=== PATIENT | male | born 1955 | race Caucasian/White ===

== ENCOUNTER 2018-05-03 13:31 | Inpatient (IN) | payer OTHER ==
--- NOTE | 2018-05-03 13:40 | EDPHY ---
H & P Stated Complaint: increased SOB, had to increase home o2 to 4L Time Seen by Provider: 05/03/18 13:40 HPI/ROS: CHIEF COMPLAINT: Increasing dyspnea, abdominal pain and distension HISTORY OF PRESENT ILLNESS: Patient reportedly has a history of stage IV renal cancer with lung metastases. Presents the emergency department today with increasing dyspnea, abdominal distention and pain. The patient is chronically anticoagulated with Eliquis which she has been compliant with. The patient denies any asymmetric calf pain or swelling. The patient denies fever, cough or congestion. The patient does report he has been experiencing intermittent constipation and diarrhea. The patient denies any history of fall or trauma. The patient does state that his shortness of breath moderate to severe in nature and worsened with ambulation. The patient was hospitalized approximately a month ago and or [facility]. He was noted to have chronic renal failure at that point time with a creatinine of 5 The patient reports his baseline creatinine is in the low 4 range currently. The patient is scheduled to undergo a CT scan of the chest abdomen pelvis for staging of his disease in the coming weeks. Patient typically is followed at [facility]. REVIEW OF SYSTEMS: A comprehensive 10 point review of systems is otherwise negative aside from elements mentioned in the history of present illness. Source: Patient Exam Limitations: No limitations - Personal History Current Tetanus/Diphtheria Vaccine: Unsure Current Tetanus Diphtheria and Acellular Pertussis (TDAP): Unsure - Medical/Surgical History Hx Asthma: No Hx Chronic Respiratory Disease: Yes Hx Diabetes: No Hx Renal Disease: Yes Hx Cirrhosis: No Hx Alcoholism: No Hx HIV/AIDS: No Hx Splenectomy or Spleen Trauma: No Other PMH: Stage 4 kidney cancer w/lung involvement, CHF, restrictive lung disease - Social History Smoking Status: Never smoked - Physical Exam Exam: General Appearance: Alert, no distress Eyes: Pupils equal and round no pallor or injection ENT, Mouth: Mucous membranes moist Respiratory: Fine expiratory wheezing noted Cardiovascular: Regular rate and rhythm Gastrointestinal: Protuberant, normal bowel sounds, minimal generalized tenderness, no peritoneal signs Neurological: 5/5 strength noted all 4 extremities Skin: Warm and dry, no rashes Musculoskeletal: Neck is supple nontender Extremities: symmetrical, full range of motion Constitutional: Initial Vital Signs Temperature (C) 36.7 C 05/03/18 13:34 Heart Rate 69 05/03/18 13:34 Respiratory Rate 20 05/03/18 13:34 Blood Pressure 158/92 H 05/03/18 13:34 O2 Sat (%) 93 05/03/18 13:34 O2 Delivery Mode Nasal Cannula O2 (L/minute) 4 Allergies/Adverse Reactions: Penicillins Allergy (Mild, Verified 05/03/18 13:33) Rash Home Medications: Medication Instructions Recorded ALLOPURINOL 300 mg 12/28/09 FENOFIBRATE 160 mg 12/28/09 FISH OIL CONC 1,000 MG SOFTGEL 1,000 mg 12/28/09 LISINOPRIL 5 mg 12/28/09 Medical Decision Making - Diagnostics Imaging Results: Imaging Impressions Chest X-Ray 05/03/18 13:54 Impression: Large left pleural effusion. Atelectasis or pneumonia in the left mid and lower hemithorax. Stable cardiomegaly. ED Course/Re-evaluation: Patient presents to the ED with increasing abdominal distension and dyspnea. The patient has a history of chronic renal failure. He has a history of metastatic renal cancer. The patient is under the impression that he only had small nodular metastases in the lung. The patient is currently anticoagulated and I doubt pulmonary embolism is a presentation of his symptoms today. I am unable to access the [place] system to review his hospitalization [facility]. Chest x-ray does demonstrate a large pleural effusion which is certainly symptomatic. The patient is currently anticoagulated with Eliquis. He was placed on this a month ago for bilateral DVTs. Patient will require admission to hospital for consideration of a thoracentesis. Consultation was made with the hospitalist service. The patient will be admitted by Dr. Billingsley. Pending at this time is a CT scan of the chest abdomen pelvis without contrast for further characterization of his underlying metastatic renal disease. Differential Diagnosis: Differential diagnosis considered includes pleural effusion, asthma, bronchitis , pneumonia, hemothorax, pneumothorax - Data Points Laboratory Results: Laboratory Results 05/03/18 14:02 05/03/18 05/03/18 05/03/18 14:11 14:02 14:02 WBC 6.64 10^3/uL 10^3/uL (3.80-9.50) RBC 3.79 10^6/uL L 10^6/uL (4.40-6.38) Hgb 10.8 g/dL L g/dL (13.7-17.5) POC Hgb 11.2 gm/dL L gm/dL (13.7-17.5) Hct 33.4 % L % (40.0-51.0) POC Hct 33 % L % (40-51) MCV 88.1 fL fL (81.5-99.8) MCH 28.5 pg pg (27.9-34.1) MCHC 32.3 g/dL L g/dL (32.4-36.7) RDW 13.4 % % (11.5-15.2) Plt Count 157 10^3/uL 10^3/uL (150-400) MPV 9.6 fL fL (8.7-11.7) Neut % (Auto) Pending Lymph % (Auto) Pending [place] % (Auto) Pending Eos % (Auto) Pending Baso % (Auto) Pending Nucleat RBC Rel Count Pending Absolute Neuts (auto) Pending Absolute Lymphs (auto) Pending Absolute Monos (auto) Pending Absolute Eos (auto) Pending Absolute Basos (auto) Pending Absolute Nucleated RBC Pending Immature Gran % Pending Immature Gran # Pending Platelet Estimate Pending POC Sodium 140 mEq/L mEq/L (135-145) Sodium Pending POC Potassium 4.5 mEq/L mEq/L (3.3-5.0) Potassium Pending POC Chloride 108 mEq/L mEq/L (97-110) Chloride Pending Carbon Dioxide Pending Anion Gap Pending POC BUN 62 mg/dL H mg/dL (7-23) BUN Pending Creatinine Pending POC Creatinine 4.2 mg/dL H mg/dL (0.7-1.3) Estimated GFR Pending Glucose Pending POC Glucose 92 mg/dL mg/dL (70-100) Calcium Pending Total Bilirubin Pending Conjugated Bilirubin Pending Unconjugated Bilirubin Pending AST Pending ALT Pending Alkaline Phosphatase Pending Total Protein Pending Albumin Pending Lipase Pending Point of Care Test Results: Chemistry 05/03/18 14:11 POC Sodium 140 mEq/L mEq/L (135-145) POC Potassium 4.5 mEq/L mEq/L (3.3-5.0) POC Chloride 108 mEq/L mEq/L (97-110) POC BUN 62 mg/dL H mg/dL (7-23) POC Creatinine 4.2 mg/dL H mg/dL (0.7-1.3) POC Glucose 92 mg/dL mg/dL (70-100) ISTAT H&H 05/03/18 14:11 POC Hgb 11.2 gm/dL L gm/dL (13.7-17.5) POC Hct 33 % L % (40-51) Departure - Departure Disposition: [facility] Inpatient Acute Clinical Impression: Pleural effusion, Renal malignant neoplasm Condition: Fair Referrals: Unknown,Unknown [Primary Care Provider] - As per Instructions
[2018-05-03 14:21] LABS: PLATELET COUNT 157 10^3/uL (150-400)
[2018-05-03 15:20] LABS: INR 1.2 (0.83-1.16); PROTIME(PATIENT) 15.4 SEC (12.0-15.0)
[2018-05-03] MEDS ORDERED: ALBUTEROL 60 PUFFS/8 GM MDI IH PRN (15:27)
[2018-05-03] MEDS ORDERED: oxyCODONE IR 5 MG TAB PO PRN (15:27)
[2018-05-03] MEDS ORDERED: ONDANSETRON DISINTEGRATING 4 MG TAB PO PRN (15:27)
[2018-05-03] MEDS ORDERED: ACETAMINOPHEN 325 MG TAB PO PRN (15:27)
[2018-05-03] MEDS ORDERED: ONDANSETRON 4 MG/2 ML VIAL IVP PRN (15:27)
[2018-05-03] MEDS ORDERED: HYDROCODONE/APAP 5/325 TAB PO PRN (15:29)
--- NOTE | 2018-05-03 15:32 | PDGENHP ---
History and Physical - Chief Complaint shortness of breath - History of Present Illness 62yo M with metastatic RCC, CKD stage 5 with nephrotic syndrome, DVT on OAC here with several weeks of worsening shortness of breath. Was previously able to walk short distances (10ft) before becoming short of breath and now gets dyspneic with hardly any movement at all. + orthopnea. + abdominal distention. No leg swelling, chest pain, pleuritic pain. No fevers, chills, cough. His home health nurse instructed him to go up on his oxygen from baseline 2L to 4L the other day. He has been taking his bumex (2mg daily) with good UOP. Tries to limit salt intake. In the ED, a chest x-ray showed a large left pleural effusion. CT of the chest confirms large pleural effusion with complete atelectasis of LLL and partial collapse of MATT. His oxygen saturations were stable on 4L. He is being admitted for further evaluation and management. Case discussed with ED physician Fer Hunter. Of note, patient was hospitalized 12/2017 for volume overload. A chest x-ray at that time reported "left basilar atelectasis" but no note of effusion. He reports learning of left pleural effusion sometime in late February. He was actually scheduled for thoracentesis 03/27 but when he went in for procedure there was not enough fluid. He was subsequently hospitalized again 03/28-04/07 at [facility] for dyspnea. An extensive work up (TTE, spirometry, V/Q scan, CT) was undertaken and ultimately his dyspnea was felt to be largely subjective. Pulmonology and nephrology were consulted during that admission. He did have a small left pleural effusion but this was felt too small for thoracentesis. He has never had a thoracentesis. He last took his eliquis this morning. History Information - Allergies/Home Medication List Allergies/Adverse Reactions: Penicillins Allergy (Mild, Verified 05/03/18 13:33) Rash Home Medications: Apixaban [Eliquis] 2.5 mg PO BID 05/03/18 [Last Taken 05/03/18] Atorvastatin Calcium [Lipitor 20 mg (*)] 20 mg PO DAILY 05/03/18 [Last Taken 10/14] Bumetanide [Bumex (*)] 2 mg PO DAILY 05/03/18 [Last Taken 05/03/18] Calcium Acetate [Phoslo (*)] 1,334 mg PO TIDMEAL 05/03/18 [Last Taken 05/03/18] Hydrocodone/APAP 5/325 [Linden 5/325 (*)] 1 - 2 tab PO Q4HRS PRN 05/03/18 [Last Taken Unknown] Levothyroxine [Synthroid 88 mcg (*)] 88 mcg PO DAILY06 05/03/18 [Last Taken 10/14] Metoprolol Succinate Xr [Toprol Xl 100 mg (*)] 150 mg PO DAILY 05/03/18 [Last Taken 05/03/18] amLODIPine BESYLATE [Norvasc 10 mg (*)] 10 mg PO DAILY 05/03/18 [Last Taken 10/14] glipiZIDE [Glipizide] 2.5 mg PO BIDMEAL 05/03/18 [Last Taken 05/03/18] traMADol [Ultram 50 mg (*)] 100 mg PO Q4HRS PRN 05/03/18 [Last Taken 04/26/18] I have personally reviewed and updated: family history, medical history, social history, surgical history - Past Medical History Additional medical history: renal cell cancer with suspected mets to lungs ( pulmonary nodules, never biopsied), CKD stage 4-5 with nephrotic syndrome, chronic hypoxia on 2L, 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, 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, T2DM, hypothyroidism, gout, HTN, diastolic dysfunction (grade 1) - Surgical History Additional surgical history: cervical neck lymph node dissection, renal biopsy, shoulder surgery - Family History Positive for: hypertension Additional family history: father - CAD/M; mother - dementia, etoh abuse, CVA; grandfather - throat cancer - Social History Smoking Status: Never smoked Alcohol Use: Occasionally Drug Use: None Additional social history: Lives with soncamilo at bedside, passed 2015 Review of Systems Review of Systems: ROS: 10pt was reviewed & negative except for what was stated in HPI & below Physical Exam Physical Exam: Temp Pulse Resp BP Pulse Ox 36.7 C 69 20 158/92 H 93 05/03/18 13:34 05/03/18 13:34 05/03/18 13:34 05/03/18 13:34 05/03/18 13:34 Constitutional: no apparent distress, not in pain, obese Eyes: PERRL, anicteric sclera, EOMI Ears, Nose, Mouth, Throat: moist mucous membranes, hearing normal, ears appear normal, no oral mucosal ulcers Cardiovascular: regular rate and rhythym, no murmur, rub, or gallop, No JVD, No edema Respiratory: no respiratory distress, no rales or rhonchi, reduced air movement (left lung above mid-lung soto), No expiratory wheeze Gastrointestinal: normoactive bowel sounds, distension, No no palpable masses, No tenderness, No guarding Genitourinary: no bladder fullness, no bladder tenderness Skin: warm, normal color, no rashes or abrasions, no fluctuance, no induration, No mottled Musculoskeletal: full muscle strength, no muscle tenderness, normal joint ROM, no joint effusions Neurologic: AAOx3 Psychiatric: interacting appropriately, not anxious, not encephalopathic, thought process linear Lab Data & Imaging Review 05/03/18 14:02 05/03/18 14:02 WBC 6.64 10^3/uL (3.80-9.50) 05/03/18 14:02 RBC 3.79 10^6/uL (4.40-6.38) L 05/03/18 14:02 Hgb 10.8 g/dL (13.7-17.5) L 05/03/18 14:02 POC Hgb 11.2 gm/dL (13.7-17.5) L 05/03/18 14:11 Hct 33.4 % (40.0-51.0) L 05/03/18 14:02 POC Hct 33 % (40-51) L 05/03/18 14:11 MCV 88.1 fL (81.5-99.8) 05/03/18 14:02 MCH 28.5 pg (27.9-34.1) 05/03/18 14:02 MCHC 32.3 g/dL (32.4-36.7) L 05/03/18 14:02 RDW 13.4 % (11.5-15.2) 05/03/18 14:02 Plt Count 157 10^3/uL (150-400) 05/03/18 14:02 MPV 9.6 fL (8.7-11.7) 05/03/18 14:02 Neut % (Auto) 77.7 % (39.3-74.2) H 05/03/18 14:02 Lymph % (Auto) 7.8 % (15.0-45.0) L 05/03/18 14:02 [place] % (Auto) 9.9 % (4.5-13.0) 05/03/18 14:02 Eos % (Auto) 3.2 % (0.6-7.6) 05/03/18 14:02 Baso % (Auto) 0.8 % (0.3-1.7) 05/03/18 14:02 Nucleat RBC Rel Count 0.0 % (0.0-0.2) 05/03/18 14:02 Absolute Neuts (auto) 5.16 10^3/uL (1.70-6.50) 05/03/18 14:02 Absolute Lymphs (auto) 0.52 10^3/uL (1.00-3.00) L 05/03/18 14:02 Absolute Monos (auto) 0.66 10^3/uL (0.30-0.80) 05/03/18 14:02 Absolute Eos (auto) 0.21 10^3/uL (0.03-0.40) 05/03/18 14:02 Absolute Basos (auto) 0.05 10^3/uL (0.02-0.10) 05/03/18 14:02 Absolute Nucleated RBC 0.00 10^3/uL (0-0.01) 05/03/18 14:02 Immature Gran % 0.6 % (0.0-1.1) 05/03/18 14:02 Seg Neutrophils % 84.0 % 05/03/18 14:02 Band Neutrophils % 0.0 % 05/03/18 14:02 Lymphocytes % 7.0 % 05/03/18 14:02 Monocytes % 7.0 % 05/03/18 14:02 Eosinophils % 2.0 % 05/03/18 14:02 Basophils % 0.0 % 05/03/18 14:02 Metamyelocytes % 0.0 % 05/03/18 14:02 Myelocytes % 0.0 % 05/03/18 14:02 Promyelocytes % 0.0 % 05/03/18 14:02 Blast Cells % 0.0 % 05/03/18 14:02 Immature Gran # 0.04 10^3/uL (0.00-0.10) 05/03/18 14:02 Absolute Seg Neuts 5.58 10^3/uL (1.70-6.50) 05/03/18 14:02 Absolute Band Neuts 0.00 10^3/uL (0.00-0.70) 05/03/18 14:02 Absolute Lymphocytes 0.46 10^3/uL (1.00-3.00) L 05/03/18 14:02 Absolute Monocytes 0.46 10^3/uL (0.30-0.80) 05/03/18 14:02 Absolute Eosinophils 0.13 10^3/uL (0.03-0.40) 05/03/18 14:02 Absolute Basophils 0.00 10^3/uL (0.02-0.10) L 05/03/18 14:02 Absolute Metamyelocyte 0.00 10^3/mL (0.00-0.00) 05/03/18 14:02 Absolute Myelocytes 0.00 10^3/mL (0.00-0.00) 05/03/18 14:02 Absolute Promyelocytes 0.00 10^3/uL (0.00-0.00) 05/03/18 14:02 Absolute Plasma Cells 0.00 10^3/uL (0.00-0.00) 05/03/18 14:02 Nucleated RBCs 1.0 /100 WBC (0-0) H 05/03/18 14:02 Absolute Blast Cells 0.00 10^3/uL (0.00-0.00) 05/03/18 14:02 Plasma Cells % 0.0 % 05/03/18 14:02 Platelet Estimate ADEQUATE (ADEQ) 05/03/18 14:02 PT 15.4 SEC (12.0-15.0) H 05/03/18 15:02 INR 1.20 (0.83-1.16) H 05/03/18 15:02 POC Sodium 140 mEq/L (135-145) 05/03/18 14:11 Sodium 138 mEq/L (135-145) 05/03/18 14:02 POC Potassium 4.5 mEq/L (3.3-5.0) 05/03/18 14:11 Potassium 4.6 mEq/L (3.5-5.2) 05/03/18 14:02 POC Chloride 108 mEq/L (97-110) 05/03/18 14:11 Chloride 109 mEq/L (97-110) 05/03/18 14:02 Carbon Dioxide 22 mEq/l (22-31) 05/03/18 14:02 Anion Gap 7 mEq/L (6-14) 05/03/18 14:02 POC BUN 62 mg/dL (7-23) H 05/03/18 14:11 BUN 64 mg/dL (7-23) H 05/03/18 14:02 Creatinine 3.8 mg/dL (0.7-1.3) H 05/03/18 14:02 POC Creatinine 4.2 mg/dL (0.7-1.3) H 05/03/18 14:11 Estimated GFR 16 05/03/18 14:02 Glucose 94 mg/dL (70-100) 05/03/18 14:02 POC Glucose 92 mg/dL (70-100) 05/03/18 14:11 Calcium 9.3 mg/dL (8.5-10.4) 05/03/18 14:02 Total Bilirubin 0.4 mg/dL (0.1-1.4) 05/03/18 14:02 Conjugated Bilirubin 0.3 mg/dL (0.0-0.5) 05/03/18 14:02 Unconjugated Bilirubin 0.1 mg/dL (0.0-1.1) 05/03/18 14:02 AST 19 IU/L (17-59) 05/03/18 14:02 ALT 32 IU/L (21-72) 05/03/18 14:02 Alkaline Phosphatase 65 IU/L (38-126) 05/03/18 14:02 Total Protein 6.7 g/dL (6.3-8.2) 05/03/18 14:02 Albumin 3.6 g/dL (3.5-5.0) 05/03/18 14:02 Lipase 409 IU/L (23-300) H 05/03/18 14:02 Visualized and Interpreted Chest x-ray results: Yes Visualized and Interpreted imaging results: Yes Interpretation: CXR: large left pleural effusion which appears loculated, right lung soto clear (interp by me) Assessment & Plan Assessment: 62yo M with metastatic RCC, CKD stage 4-5 with nephrotic syndrome, DVT on OAC here with several weeks of worsening shortness of breath found to have large left pleural effusion. Plan: 1. Large left pleural effusion: Never been tapped. Symptomatic. Significant increase from 1 month ago. Suspect related to malignancy vs diastolic CHF w/ nephrotic syndrome. Remote h/o non-pulmonary sarcoid and doubt contributing. - Placed order for US thoracentesis with usual studies as well as cytology - Patient refusing IV diuresis, will continue home bumex - Hold on repeating echo as this was just done - Holding eliquis this evening (last took AM of 05/03) 2. Acute on chronic hypoxemic respiratory insufficiency: Acutedly related to compressive atelectasis from above. It's not entirely clear to me why he is on chronic O2; somewhat unremarkable work up during recent hospitalization (V/Q, TTE, CT, spirometry which interestingly showed restriction). - Wean as able after thora 3. CKD with nephrotic syndrome: Sees Dr Vu of [facility]. Cr actually better than it's been in the past. - Check spot urine protein:creatinine - Continue bumex 2mg qd and phos binders - Alert nephrology of admission in AM. They have had discussions with him re : HD. 4. H/o DVT/PE: Holding eliquis as above, resume after procedure. 5. Metastatic renal cell cancer: Followed by Dr Ba. On avastin. 6. Pulmonary nodules: Chronic. Suspect metastases. 7. Anemia: Likely r/t renal disease. No e/o bleeding. Monitor. 8. T2DM: He is on glipizide, which isn't great option with his CKD. Will hold and monitor BG. 9. H/o sarcoidosis: Reportedly localized to LN tissue in neck s/p resection. 10. Chronic diastolic CHF: Grade 1 on TTE last month. Diuresis as above. 11. HTN: Home meds. VTE ppx: SCDs Code: full Diet: low salt (refusing renal diet) Dispo: Admit under observation
[2018-05-03] MEDS: CALCIUM ACETATE 667 MG CAP PO SCH (18:28)
[2018-05-04] MEDS: POLYETHYLENE GLYCOL 3350 17 GM PKT PO PRN ×2 (02:06→09:41)
[2018-05-04] MEDS: traMADol 50 MG TAB PO PRN ×3 (05:00→20:21)
[2018-05-04] MEDS: LEVOTHYROXINE 88 MCG TAB PO SCH (05:01)
[2018-05-04 05:04] LABS: PLATELET COUNT 159 10^3/uL (150-400)
--- NOTE | 2018-05-04 08:17 | ASMTLACE ---
NORMAN Acuity / Level of Answers: Yes Care: Did the patient have an inpatient admission? Comorbidities - select Answers: Any tumor (including all that apply lymphoma or leukemia) Congestive heart failure Diabetes (uncontrolled or controlled) Moderate or severe liver or renal disease Opioid dependence / Chronic pain Other Notes: HTN; Hx of DVT/PE # of Emergency department Answers: 1-2 visits in the last 6 months Score: 18 Date Signed: 05/04/2018 08:16 AM Electronically Signed By:Rosalia Little
[2018-05-04] MEDS ORDERED: BUMETANIDE 2 MG TAB PO SCH (09:00)
--- NOTE | 2018-05-04 09:35 | ASMTCMCOM ---
CM Note CM Note Notes: Patient chart reviewed Patient admitted via ED with increasing SOB. Stage IV renal cancer with mets to the lungs. Daughter Clare is POA. CM to follow for needs. Plan: TBD Date Signed: 05/04/2018 09:34 AM Electronically Signed By:Snow Wasserman RN
[2018-05-04] MEDS: CALCIUM ACETATE 667 MG CAP PO SCH ×4 (09:36→18:55)
[2018-05-04] MEDS: BUMETANIDE 2 MG TAB PO SCH (09:38)
[2018-05-04] MEDS: METOPROLOL SUCCINATE XR 100 MG TAB PO SCH (09:39)
[2018-05-04] MEDS: ATORVASTATIN CALCIUM 20 MG TAB PO SCH (09:39)
[2018-05-04] MEDS ORDERED: LIDOCAINE 1% 300 MG/30 ML SDV ONE (12:15)
--- NOTE | 2018-05-04 17:24 | HOSPPROG ---
Hospitalist Progress Note Assessment/Plan: The patient is a 62-year-old male with PMH RCC, CKD who was admitted for increasing shortness of breath secondary to large left-sided pleural effusion. ASSESSMENT/PLAN: L pleural effusion, large CKD St V St IV renal cell carcinoma -thoracentesis today. Pt felt fatigued/still short of breath after. Would like to stay o/n to monitor for complications. -Consulted Palliative. 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 Will resume this here. -Check AM labs. VTE prophylaxis: Eliquis Code Status: Full code Status: Changing to inpatient for > 2 midnight stay for monitoring for complications after procedure, continued shortness of breath/generalized weakness. Disposition: med surg with discharge anticipated for tomorrow ____ SUBJECTIVE: Saw patient this a.m. With his daughter. He continued to have shortness of breath. OBJECTIVE: Physical Exam: General: The patient is an obese male who is alert and in no acute distress. HEENT: normocephalic, extraocular movements intact, conjunctivae clear. Mucous membranes moist. Neck: trachea midline, no visible masses. Resp: Moderately labored, on oxygen. Abd: soft and moderately distended Musculoskeletal: Normal muscle tone/bulk. Neuro: cranial nerves II XII grossly intact. Intact gross motor and sensory function. Psych: Appropriate mood and appropriate affect. Skin: No pallor. No petechiae. Labs/Imaging/Other Tests: Personally reviewed/interpreted. Objective: Vital Signs Temp Pulse Resp BP Pulse Ox 36.4 C 60 16 132/77 H 91 L 05/04/18 16:05 05/04/18 16:05 05/04/18 16:05 05/04/18 16:05 05/04/18 16:05 Microbiology 05/04/18 11:45 Body Fluid Culture - Final Thoracic Fluid - Aspirate Laboratory Results 05/04/18 04:36 05/04/18 04:36 05/03/18 05/04/18 05/05/18 05:59 05:59 05:59 Intake Total 740 700 Balance 740 700 PT 15.4 SEC (12.0-15.0) H 05/03/18 15:02 INR 1.20 (0.83-1.16) H 01/06/19 15:02 - Time Spent With Patient Time Spent with Patient: greater than 35 minutes Time Spent with Patient: Greater than 35 minutes spent on this patients care, greater than 50% of time spent counseling, educating, and coordinating care regarding the above mentioned plan. ICD10 Worksheet Patient Problems: Problems Problem Status Onset Pleural effusion Acute Renal malignant neoplasm Acute
[2018-05-04] MEDS: APIXABAN 2.5 MG TAB PO SCH (20:20)
[2018-05-05] MEDS: LEVOTHYROXINE 88 MCG TAB PO SCH (05:03)
[2018-05-05 08:05] VITALS: BP 122/74
[2018-05-05] MEDS: CALCIUM ACETATE 667 MG CAP PO SCH (08:21)
[2018-05-05] MEDS: ATORVASTATIN CALCIUM 20 MG TAB PO SCH (08:21)
[2018-05-05] MEDS: APIXABAN 2.5 MG TAB PO SCH (08:21)
[2018-05-05] MEDS: BUMETANIDE 2 MG TAB PO SCH (08:22)
--- NOTE | 2018-05-05 08:48 | PDMN ---
Medical Necessity Medical necessity: MCG M540 Pleural Effusion: 62 yo w/ SOB found to have pleural effusion. Initially OBS for workup/tx but pt requires additional MN as effusion large requiring thoracentesis w/ additional fatigue and SOB post procedure. Hx renal cell ca w/ mets to lungs, CKD stage 4-5 w/ nephrotic syndrome, chronic hypoxia on 2L, B/L PE and recurrent DVT, remote sarcoidosis, DM, hypothyroidism, gout, HTN, diastolic dysfunction grade 1. Change to IP status 05/04/18@1726 per MD order for monitoring of complications post thoracentesis.
--- NOTE | 2018-05-05 10:45 | PDDCSUM ---
Discharge Summary Discharge Summary: Date of Admission: 05/03/2018 Date of Discharge: 05/05/2018 Discharge Diagnoses: Left pleural effusion, s/p thoracentesis CKD stage 5 Stage IV renal cell carcinoma Chronic hypoxemic respiratory failure, on home oxygen History of DVT/PE, on Eliquis Pulmonary nodules Anemia Type 2 diabetes mellitus History of sarcoidosis Chronic diastolic CHF, grade 1 Hypertension Admission Diagnoses: Left pleural effusion, large Acute on chronic hypoxemic respiratory failure-on chronic O2 CKD Stage 5 with nephrotic syndrome History of DVT/PE, on Eliquis Pulmonary nodules Anemia Type 2 diabetes mellitus History of sarcoidosis Chronic diastolic CHF, grade 1 Hypertension Consultants: Interventional Radiology-Dr. Amilcar Teague [facility] Course: Patient is a 62-year-old male with multiple comorbidities including CKD stage 5 and metastatic renal cell carcinoma who presented to the hospital with increasing shortness of breath secondary to a severe left-sided pleural effusion. Patient was admitted to undergo thoracentesis. Following the procedure, patient still felt increasingly short of breath and was monitored overnight. The next day, the patient was feeling much better and was discharged home in stable condition. He is recommended to follow up on results of fluid studies when he sees outpatient providers. Condition: Stable. Discharged to: Home with home healthcare. Pertinent tests/labs/imaging: Ultrasound guided thoracentesis-1.65 L drained. Post thoracentesisc chest x-ray- 1. Near-complete resolution of left pleural effusion status post thoracentesis without evidence of pneumothorax. 2.. Bilateral pulmonary nodules, the largest measures 2.1 cm in the left upper lobe compatible with metastatic disease. Medications: Please see med rec form. No new medications. Resume home medications. Special instructions: Sleep with head of bed elevated 30 degrees. Return to ED if symptoms worsen. Continue home O2. Follow up: PCP in [address] Lashell Vu in [address] Terri Ba as scheduled 1 week. > 30 minutes of total time was spent on counseling and coordination of care for this patient's discharge.
--- NOTE | 2018-05-05 10:59 | ASMTDCNOTE ---
Case Management Discharge Discharge Order Complete? Answers: Yes Patient to Obtain Answers: Independently Medications Transportation Arranged Answers: Family/Friends Agency/Facility Transfer Answers: Yes Report Printed & Faxed to Receiving Agency Family Notified Answers: Yes Discharge Comments Notes: Patient anxious to leave. Medically cleared for dc. No needs, referral for outpatient palliative care sent, IM signed. DC to home no current needs. Date Signed: 05/05/2018 10:58 AM Electronically Signed By:Snow Wasserman RN
--- NOTE | 2018-05-05 11:10 | ASMTCMCOM ---
CM Note CM Note Notes: Addendum tp previous note, patient is current with [facility]. notiifed to put interagency orders in, Referral in allscripts to [facility]. Plan: Home with [facility] and [facility] outpatient palliative care. Date Signed: 05/05/2018 11:09 AM Electronically Signed By:Snow Wasserman RN
--- NOTE | 2018-05-05 11:14 | PDIAF ---
- Diagnosis Diagnosis: metastatic renal cell carcinoma, pleural effusion, CKD St V Code Status: Full Code - Medication Management Discharge Medications: electronically signed and located in the Home Medication List. - Orders Services needed: Home Care, Registered Nurse, Physical Therapy, Occupational Therapy Home Care Face to Face: I certify that this patient was under my care and that I had the required [id number] encounter meeting the encounter requirements on the discharge day. My findings support the fact that the patient is homebound as defined in Home Care Face to Face Continued: CMS Chapter 7 Medicare Benefits Manual 30.1.1 , The condition of the patient is such that there exists a normal inability to leave home and consequently, leaving home would require a considerable and taxing effort. Diet Recommendation: other (renal diet) Diet Texture: Regular Texture Diet Weigh Patient: daily Additional Instructions: Sleep with head of bed elevated 30 degrees. Return to ED if symptoms worsen. Continue home O2. - Follow Up Care Current Providers and Referrals: PCP Not In,Stuart [Medical Doctor] - follow up in 2 weeks Lashell Vu MD [Medical Doctor] - follow up in 1 week Terri Ba MD [Medical Doctor] - follow up as scheduled
[2018-05-05] MEDS: METOPROLOL SUCCINATE XR 100 MG TAB PO SCH (12:44)
== END 2018-05-05 11:22 | disposition home health service (06) | DRG 699 ==
LOC: INTOOBSV 14:42 → F1N 16:40 → OBSVTOIN 05-04 17:26
PROVIDERS: ADMIT Internal Medicine; ATTEND Internal Medicine
PROC: 0W9B3ZZ Drainage of Left Pleural Cavity, Percutaneous Approach (ICD-10-PCS; principal; 2018-05-04)
DX: N04.9 Nephrotic syndrome with unspecified morphologic changes (principal); J91.8 Pleural effusion in other conditions classified elsewhere; I13.2 Hypertensive heart and chronic kidney disease with heart failure and with stage 5 chronic kidney disease, or end stage renal disease; I50.32 Chronic diastolic (congestive) heart failure; N18.5 Chronic kidney disease, stage 5; C65.2 Malignant neoplasm of left renal pelvis; C78.01 Secondary malignant neoplasm of right lung; C78.02 Secondary malignant neoplasm of left lung; D63.1 Anemia in chronic kidney disease; Z86.711 Personal history of pulmonary embolism; Z86.718 Personal history of other venous thrombosis and embolism; Z79.01 Long term (current) use of anticoagulants; E11.9 Type 2 diabetes mellitus without complications; Z79.84 Long term (current) use of oral hypoglycemic drugs; E03.9 Hypothyroidism, unspecified; M10.9 Gout, unspecified; Z99.81 Dependence on supplemental oxygen
CPT/HCPCS: 82435-PO; 82565-PO; 82947-PO; 84132-PO; 84295-PO; 84520-PO; 85014-ER; 97166-GO; G0378; J2405